=== PATIENT | female | born 1980 | race Hispanic/Latino ===

== ENCOUNTER 2019-12-09 11:30 | Outpatient (CLI) | payer BC ==
--- NOTE | 2019-12-09 11:52 | RAD ---
EXAM: 2 views of the right hip HISTORY: Right hip pain COMPARISON: None FINDINGS: 2 views of the right hip shows no evidence of acute fracture or dislocation. No degenerativ e changes are seen. No soft tissue swelling is present. IMPRESSION: No evidence of acute osseous abnormality.
--- NOTE | 2019-12-09 12:19 | RAD ---
LEFT SHOULDER 3 VIEWS: Date: 12/09/2019 HISTORY: Left shoulder pain. FINDINGS/IMPRESSION: Mild degenerative changes are present. No fracture, dislocation, or bony destruction identified. POS: [facility]
== END 2019-12-09 11:31 | disposition home or self-care (01) ==
LOC: MADRAD 11:30
PROVIDERS: ATTEND Nurse Practitioner Family
DX: M25.512 Pain in left shoulder (principal); M25.551 Pain in right hip; M75.80 Other shoulder lesions, unspecified shoulder; M75.00 Adhesive capsulitis of unspecified shoulder; M19.012 Primary osteoarthritis, left shoulder